=== PATIENT | male | born 1970 | race Caucasian/White ===

== ENCOUNTER 2017-05-24 00:18 | Emergency (ER) | payer SELFPAY ==
[~2017-05-24] VITALS: Ht 180.3 cm; Wt 76.0 kg
[~2017-05-24 00:18] MED LIST: NAPR-576 PO
[2017-05-24 00:19] VITALS: BP 131/86; PULSE 91; RESP 16; TEMP 98.8; O2SAT 98
[2017-05-24] MEDS ORDERED: LIDO1PAD52 TOPICAL (00:42)
[2017-05-24] MEDS ORDERED: BACL10TA PO (00:42)
[2017-05-24] MEDS ORDERED: DICL75TA PO (00:42)
[2017-05-24] MEDS ORDERED: ORPHENADRINE INJ 60 MG/2 ML AMP IM ONE (00:45)
[2017-05-24] MEDS ORDERED: KETOROLAC TROMETHAMINE 60 MG/2 ML (IM) VIAL IM ONE (00:45)
--- NOTE | 2017-05-24 00:51 | PD ---
HPI Chief Complaint: Back/ Neck Pain or Injury Time Seen by Provider: 00:40 Travel History International Travel<30 days: No Contact w/Intl Traveler<30days: No Traveled to known affect area: No History of Present Illness HPI 46-year-old male here with lower back pain. Reports that he has had issues with his back in the past, reports a history of degenerative disc disease. He reports that yesterday he was attempting to remove a satellite dish which was embedded in concrete on the ground. He reports that he was rocking back and forth and lifting primarily using his back. He reports that later on in the day began developing lower back pain. He describes it as a stiffness/sharp pain which is constant and worse with movement. Denies any lower extremity numbness or tingling or weakness, bowel or bladder incontinence, saddle anesthesia. He has been using [id number] ibuprofen with minimal relief. He has no other complaints at this time. PFSH Past Medical History Arthritis: Yes Asthma: Yes Anxiety: Yes Cardiovascular Problems: Yes Chest Pain: Yes Diminished Hearing: No Gastrointestinal Disorders: Yes Genitourinary: No Hypertension: Yes Musculoskeletal: Yes Neurologic: No Psychiatric: Yes Reproductive: No Respiratory: Yes Migraines: Yes Tetanus Vaccination: > 5 Years Influenza Vaccination: Yes Past Surgical History Surgical History: No Previous Surgery Abdominal Surgery: No Cardiac Surgery: No Ear Surgery: No Endocrine Surgery: No Eye Surgery: No Oral Surgery: No Thoracic Surgery: No Other Surgery: Yes (left ring finger) Social History Alcohol Use: Yes (6 PACK DAILY) Tobacco Use: Yes (1 PPD) Substance Use: No Allergies-Medications (Allergen,Severity, Reaction): Coded Allergies: No Known Allergies (Verified Adverse Reaction, Unknown, 05/24/17) Reported Meds & Prescriptions Reported Meds & Active Scripts Active Lidocaine Patch 12 HR (Lidocaine) 5 % Patch 1 Patch TOPICAL DAILY PRN Remove patch after [address] (Diclofenac Sodium) 75 Mg Tabdr 75 Mg PO BID 10 Days Baclofen 10 Mg Tab 10 Mg PO Q8HR 10 Days Review of Systems Except as stated in HPI: all other systems reviewed are Neg Physical Exam Narrative GENERAL: Well-developed well-nourished male in no acute distress SKIN: Warm and dry. HEAD: Atraumatic. Normocephalic. EYES: Pupils equal and round. No scleral icterus. No injection or drainage. ENT: No nasal bleeding or discharge. Mucous membranes pink and moist. NECK: Trachea midline. No JVD. CARDIOVASCULAR: Regular rate and rhythm. No murmur appreciated. RESPIRATORY: No accessory muscle use. Clear to auscultation. Breath sounds equal bilaterally. GASTROINTESTINAL: Abdomen soft, non-tender, nondistended. Hepatic and splenic margins not palpable. MUSCULOSKELETAL: No obvious deformities. Palpation along the lumbar paravertebral musculature. 5 muscle strength in lower extremity groups. NEUROLOGICAL: Awake and alert. No obvious cranial nerve deficits. Motor grossly within normal limits. Normal speech. PSYCHIATRIC: Appropriate mood and affect; insight and judgment normal. Data Data Last Documented VS Vital Signs Date Time Temp Pulse Resp B/P (MAP) Pulse Ox O2 Delivery O2 Flow Rate FiO2 05/24/17 00:19 98.8 91 16 131/86 (101) 98 Orders Orders Ketorolac Inj (Toradol Inj) (05/24/17 00:45) Orphenadrine Inj (Norflex Inj) (05/24/17 00:45) [facility] Medical Decision Making Medical Screen Exam Complete: Yes Emergency Medical Condition: Yes Medical Record Reviewed: Yes Differential Diagnosis Lumbar strain, spinal stenosis, herniated pulposus, fracture Narrative Course Examination history are consistent with lumbar strain. The patient will be discharged with a short course of Lidoderm patches, diclofenac, baclofen. Diagnosis Primary Impression: Lumbar strain Additional Instructions: Medications as needed. Do not drive or drink alcohol when taking baclofen. Avoid strenuous activity, heavy lifting. Follow-up with primary care physician in 2 weeks. Return for any emergent medical conditions. Med/Other Pt SpecificInfo: Prescription(s) given Scripts Lidocaine Patch 12 HR (Lidocaine Patch 12 HR) 5 % Patch 1 PATCH TOPICAL DAILY Y for PAIN, #1 BOX 1 Refill Remove patch after 12 hours Prov: Glendy Ortega MD 05/24/[address] (Diclofenac Sodium DR) 75 Mg Tabdr 75 MG PO BID for 10 Days, #20 TAB 0 Refills Prov: Glendy Ortega MD 05/24/17 Baclofen (Baclofen) 10 Mg Tab 10 MG PO Q8HR for 10 Days, TAB 0 Refills Prov: Glendy Ortega MD 05/24/17 Disposition: 01 DISCHARGE HOME Condition: Stable Jose Woods May 24, 2017 00:51
== END 2017-05-24 01:23 | disposition home or self-care (01) ==
LOC: NEPD 00:18
DX: S39.012A Strain of muscle, fascia and tendon of lower back, initial encounter (principal); F17.200 Nicotine dependence, unspecified, uncomplicated; X50.9XXA Other and unspecified overexertion or strenuous movements or postures, initial encounter; Y93.89 Activity, other specified
CPT/HCPCS: 96372; 99284; J1885; J2360